=== PATIENT | male | born 1995 | race Caucasian/White ===

== ENCOUNTER 2025-05-13 16:21 | Emergency (ER) | payer BC, SELFPAY ==
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
[2025-05-13 16:36] VITALS: BP 167/86; PULSE 98; RESP 16; TEMP 36.6; O2SAT 99
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
== END 2025-05-13 17:46 | disposition home or self-care (01) ==
PROVIDERS: Emergency Provider Nurse Practitioner
DX: S46.912A Strain of unspecified muscle, fascia and tendon at shoulder and upper arm level, left arm, initial encounter (principal); S90.112A Contusion of left great toe without damage to nail, initial encounter; V86.56XA Driver of dirt bike or motor/cross bike injured in nontraffic accident, initial encounter
CPT/HCPCS: 73030; 73660; 99204; G0463